=== PATIENT | male | born 1975 | race Caucasian/White ===

== ENCOUNTER 2023-09-04 10:11 | Outpatient (CLI) | payer OTHER, SELFPAY ==
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
== END 2023-09-04 10:12 | disposition home or self-care (01) ==
LOC: ANHNEURO 10:13
PROVIDERS: PCP Internal Medicine Gastroenterology; Visit Provider Internal Medicine Gastroenterology
DX: M79.604 Pain in right leg (principal)
CPT/HCPCS: 95886; 95911